=== PATIENT | male | born 1955 | race Caucasian/White ===

== ENCOUNTER 2021-12-08 13:01 | Emergency (ER) | payer BC ==
[~2021-12-08] VITALS: Ht 190.5 cm; Wt 144.2 kg
--- NOTE | 2021-12-08 13:05 | NUR ---
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 DENIES CHEST PAIN WHILE BEING TRIAGE. TO ER BED 1.
--- NOTE | 2021-12-08 13:20 | NUR ---
TECH AT BEDSIDE FOR EKG
--- NOTE | 2021-12-08 13:30 | NUR ---
SALINE LOCK ESTABLISHED, BLOOD DRAWN AND SENT TO LAB
[2021-12-08 13:48] LABS: BASOPHILS % (AUTO) 0.4 % (0.0-2.0); EOSINOPHILS % (AUTO) 0.5 % (0.0-6.0); HEMATOCRIT 43 % (39-51); HEMOGLOBIN 14.5 g/dL (13.5-17.5); LYMPHOCYTES # (AUTO) 2.3 K/uL (0.8-4.8); LYMPHOCYTES % (AUTO) 27.6 % (20.0-44.0); MEAN CORPUSCULAR HGB CONC 34 g/dl (31.0-36.0); MEAN CORPUSCULAR VOLUME 89 fL (80-96); MONOCYTES # (AUTO) 0.6 K/uL (0.1-1.30); MONOCYTES % (AUTO) 6.6 % (2.0-12.0); NEUTROPHILS # (AUTO) 5.4 K/uL (1.8-8.9); NEUTROPHILS % (AUTO) 64.9 % (43.0-81.0); PLATELET COUNT (AUTO) 187 K/uL (150-450); RED BLOOD CELL COUNT(AUTO) 4.89 MIL/uL (4.5-6.0); WHITE BLOOD COUNT (AUTO) 8.3 K/uL (4.3-11.0)
[2021-12-08 14:27] LABS: CALCIUM, SERUM 9.1 mg/dL (8.5-10.1); CARBON DIOXIDE 29 mmol/L (21-32); CHLORIDE 105 mmol/L (98-107); CREATININE 1.1 mg/dL (0.6-1.3); GLUCOSE 111 mg/dL (74-106); POTASSIUM 3.9 mmol/L (3.5-5.1); SODIUM SERUM 140 mmol/L (136-145); UREA NITROGEN, BLOOD 17 mg/dL (7-18)
[2021-12-08 14:33] LABS: ALANINE AMINOTRANSFERASE 35 U/L (12-78); ALBUMIN 4.2 g/dL (3.4-5.0); ALKALINE PHOSPHATASE 56 U/L (46-116); ASPARTATE AMINOTRANSFERASE 22 U/L (15-37); BILIRUBIN,DIRECT 0.1 mg/dL (0.0-0.2); BILIRUBIN,TOTAL 0.5 mg/dL (0.2-1.0); TOTAL PROTEIN, SERUM 7.1 g/dL (6.4-8.2)
--- NOTE | 2021-12-08 14:44 | NUR ---
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
[2021-12-08] MEDS ORDERED: TESTOSTERONE CREAM (14:52)
[2021-12-08] MEDS ORDERED: LORA10TA68 PO (14:52)
[2021-12-08] MEDS ORDERED: ROSU40TA PO (14:52)
--- NOTE | 2021-12-08 15:05 | NUR ---
RONI WILL CONTACT DR. MARTI [phone] ABOUT TRANSFER.
--- NOTE | 2021-12-08 15:15 | NUR ---
COVID SWAB COLLECTED AND SENT TO LAB
--- NOTE | 2021-12-08 16:55 | NUR ---
CALLED DR. MARTI [phone] 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
--- NOTE | 2021-12-08 17:09 | NUR ---
COVID NEGATIVE RESULT PER LAB
--- NOTE | 2021-12-08 17:34 | NUR ---
KIT FROM [facility] [phone] REQUESTING FACE SHEET AND CLINICALS TO [phone]
--- NOTE | 2021-12-08 18:40 | NUR ---
CALL FROM [facility] WITH TX INFO: ACCEPTED BY DR HARTMANN TO [facility], [address] [facility],[place], [place] Addendum: 12/08/21 at 1845 [address] CALL FROM [facility] WITH TX INFO: ACCEPTED BY DR HARTMANN TO [facility], [address], [place] REPORT TO BE CALLED TO [phone] Addendum: 12/08/21 at 1850 [address] CALL FROM [facility] WITH TX INFO: ACCEPTED BY DR HARTMANN TO [facility], [address] [place], [place] GOING TO ROOM [facility]
--- NOTE | 2021-12-08 18:46 | NUR ---
[facility] CALLED FOR TRANSPORT WITH ETA OF 90 MINS PER ROHAN.
--- NOTE | 2021-12-08 18:48 | NUR ---
[facility] [phone]
--- NOTE | 2021-12-08 18:50 | NUR ---
CALLED FOR REPORT BUT NURSE SAID TO CALL AFTER SHIFT CHANGE
[2021-12-08 20:02] VITALS: BP 148/113
--- NOTE | 2021-12-08 20:09 | NUR ---
[facility] TRANSPORT AT BEDSIDE
--- NOTE | 2021-12-08 20:14 | NUR ---
REPORT GIVEN TO XANDER OTERO FOR [facility] AT [facility]
== END 2021-12-08 20:14 | disposition short-term general hospital (02) ==
LOC: ER 13:04
DX: R55 Syncope and collapse (principal); I35.0 Nonrheumatic aortic (valve) stenosis; Z20.822 Contact with and (suspected) exposure to COVID-19; R94.31 Abnormal electrocardiogram [ECG] [EKG]
CPT/HCPCS: 99285; 71045; 87426; 93005 ×2; 85025; 80048; 80076; 36415; 84484 ×2; 85730; C9803